=== PATIENT | female | born 1965 | race Caucasian/White ===

== ENCOUNTER 2023-11-22 09:30 | Outpatient (AMB) | payer OTHER, MEDICAID, SELFPAY ==
--- NOTE | 2023-11-22 09:58 | MHC.OFFVISWM ---
Intake VS Expanded 11/22/23 10:07 BP 152/66 H Blood Pressure Location Rt brachial Blood Pressure Position Sitting Pulse 73 Pulse Source Pulse Oximeter Temp 97.9 F Temperature Source Temporal Artery Scan Pulse Oximetry 99 Oxygen Delivery Method Room Air Height 5 ft 2 in Weight 137 lb 3.2 oz BMI 25.1 Body Fat % 30.7 Body Fat Mass 42.2 Fat Free Mass 95.0 Visceral Fat Rating 7.0 Body Water % 49.0 Body Water Mass 67.2 Muscle Mass/Score 90.2 Basal Metabolic Rate/Score 1,280 Intake Visit Reasons: (OV) PO GBP 03/07/18 Allergies No Known Allergies [No Known Allergies*] Allergy (Verified 11/22/23 10:04) Medication List - Last Reconciled 11/22/23 by HEATHER Roca ondansetron HCl 10 mg PO Q8H HPI HPI Comments History of Present Illness Details This?is a?58?yo female who is s/p RYGB 03/07/2018. Weight stable since last visit in 2019.? No complaints of nausea, emesis, abdominal pain or reflux, or constipation. Had labs done at outside facility. Has results on portal. No longer taking baby ASA. Present meal plan includes: breakfast- 2 coffees, toast lunch- small snack dinner- mini bagel with ham and cheese has some snacks at night, eats a lot of fruit and veg Exercise routine includes: walking Did the patient ever have any of these conditions and are they resolved or still being treated? GERD: resolved PEDRO:? never DM:? resolved HTN:? resolved Hyperlipidemia:? resolved Post op complications:? none Pt reports problems of excess skin of abdomen. This has been going on for several years. She is experiencing rashes which she has tried to use baby power for, which has not resolved the problem. These rashes are itchy and painful. Walking is more difficult due to the heaviness of the excess skin getting in the way during movement. She also is experiencing issues of skin of upper thighs. Has been having chafing/rashes due to friction, finds shaving her legs difficult due to irritation. Walking also difficult due to discomfort. PFSH Surgical History (Updated 11/22/23 @ 10:25 by HEATHER Roca) Hx of carpal tunnel repair S/P gastric sleeve procedure Social History (Updated 11/22/23 @ 10:06 by Socorro Fung CMA) Alcohol intake: current Alcohol intake frequency: holidays/special occasions only Patient Tobacco Use Status: Never used Tobacco Physical Exam Vital Signs: Last Vital Signs Temp 97.9 F 11/22/23 10:07 Pulse 73 11/22/23 10:07 BP 152/66 H 11/22/23 10:07 Pulse Ox 99 11/22/23 10:07 Oxygen Delivery Method Room Air 11/22/23 10:07 BMI result Body Mass Index 25.1 Assessment & Plan Assessment & Plan (1) Overweight: Code(s): E66.3 - Overweight (2) Hx of gastric bypass: Code(s): Z98.84 - Bariatric surgery status (3) Excess skin: Code(s): L98.7 - Excessive and redundant skin and subcutaneous tissue Plan Pt to increase daily protein intake with goal 60g/day. Add in one protein shake (has used Pure products in the past), make sure to have protein at dinnertime. Clotrimazole ointment ordered for rashes of excess skin. Labs previously drawn at outside facility, pt will have results sent to us. Will bring updated med list at next visit. RTC 6 weeks to monitor excess skin issues. Patient is overweight with issues of excess skin and is not considered stable at this time. I spent a total of 30 minutes reviewing/updating records, examining the patient and counseling the patient on weight management as detailed above. Medications: New clotrimazole 1% 1 appl topical BID 45 grams 3RF Coding Level of Care Code Est Pt Level 4 (93592) Diagnoses Overweight E66.3 Hx of gastric bypass Z98.84 Excess skin L98.7
[2023-11-22 10:07] VITALS: BP 152/66; PULSE 73; TEMP 36.6; O2SAT 99; BMI 25.1
== END 2023-11-22 10:58 | disposition home or self-care (01) ==
PROVIDERS: PCP Nurse Practitioner Family; Visit Provider Physician Assistant Surgical
DX: E66.3 Overweight (principal); Z68.25 Body mass index [BMI] 25.0-25.9, adult; Z98.84 Bariatric surgery status; L98.7 Excessive and redundant skin and subcutaneous tissue
CPT/HCPCS: 99214

== ENCOUNTER → 2023-11-22 09:30 | Outpatient (BNVA) | payer OTHER, MEDICAID, SELFPAY | PROVIDERS: PCP Nurse Practitioner Family; Visit Provider Physician Assistant Surgical ==

== ENCOUNTER 2024-01-21 10:42 | Outpatient (AMB) | payer OTHER, MEDICAID, SELFPAY ==
--- NOTE | 2024-01-21 10:37 | A.OFFVIS_ITS ---
VS Expanded 01/21/24 10:52 Height 5 ft 2 in Weight 137 lb BMI 25.1 Intake Visit Reasons: (phone) PO GBP 03/07/18 Allergies No Known Allergies [No Known Allergies*] Allergy (Verified 11/22/23 10:04) Medication List - Last Reconciled 01/21/24 by HEATHER Roca aspirin 81 mg PO DAILY cholecalciferol (vitamin D3) 50 mcg PO DAILY clotrimazole 1% 1 appl topical BID ondansetron HCl 10 mg PO Q8H HPI Comments Details: This?is a?58?yo female who is s/p RYGB 03/07/2018. Weight stable since last visit 1 month ago.? No complaints of nausea, emesis, abdominal pain or reflux, or constipation. Pt reports being on a BP and HLD med, unsure of name. Present meal plan includes: breakfast- 2 coffees, eggs lunch- small snack dinner- has started to increase her protein at evening meals goal 60g/day protein has some snacks at night, eats a lot of fruit and veg Exercise routine includes: walking Pt reports ongoing problems of excess skin of abdomen. This has been going on fo r several years. She is experiencing rashes which she has tried the clotrimazole ointment, but this has not resolved the problem. These rashes are itchy and painful. Pt notices unpleasant odor in skin fold, has to clean frequently and shower often. Has to wear special waistbands with pants to hold skin in place to prevent discomfort. Walking is more difficult due to the heaviness of the excess skin getting in the way during movement. She also is experiencing issues of skin of upper thighs. Has been having chafing/rashes due to friction, finds shaving her legs difficult due to irritation. Topical rx has not improved this either. Walking also difficult due to discomfort. [facility] Surgical History (Updated 11/22/23 @ 10:25 by HEATHER Roca) Hx of carpal tunnel repair S/P gastric sleeve procedure Social History (Updated 11/22/23 @ 10:06 by Socorro Fung CMA) Alcohol intake: current Alcohol intake frequency: holidays/special occasions only Patient Tobacco Use Status: Never used Tobacco Telehealth Telehealth Telehealth Platform: Telephone Location of provider rendering services: other Location of patient: address on file Patient Identification confirmed using: Name, : Yes Telehealth method: voice only Patient verbally consented to treatment: Yes Patient verbally consented to billing insurance company: Yes Patient informed of any privacy concerns related to visit: Yes Minutes spent on Phone/Video with Pt.: 15 Assessment & Plan Assessment & Plan (1) Hx of gastric bypass: Code(s): Z98.84 - Bariatric surgery status Category: Surgical (2) Overweight: Code(s): E66.3 - Overweight Category: Medical (3) Excess skin: Code(s): L98.7 - Excessive and redundant skin and subcutaneous tissue Category: Medical Plan Pt has increased her protein intake closer to goal. We discussed the importance of this in ensuring adequate nutrition prior to a potential operation. She is having problems of excess skin of abdomen, causing frequent painful, malodorous, itchy rashes refractory to topical rx treatment. In addition, the excess skin is causing her pain and discomfort with activites of daily living such as walking, and requires special clothing to minimize discomfort. She would benefit from definitive treatment of panniculectomy. Pt to come into office for physical exam, photos, and updated med list. Will then submit to insurance. Patient is overweight and with ongoing issues of excess skin of abdomen, and is not considered stable at this time. I spent a total of 30 minutes reviewing/updating records, examining the patient and counseling the patient on weight management as detailed above.
[2024-01-21 10:52] VITALS: BMI 25.1
== END 2024-01-21 10:55 | disposition home or self-care (01) ==
LOC: HO.HBS 10:42
PROVIDERS: PCP Nurse Practitioner Family; Visit Provider Physician Assistant Surgical
DX: L98.7 Excessive and redundant skin and subcutaneous tissue (principal); E66.3 Overweight; Z68.25 Body mass index [BMI] 25.0-25.9, adult; Z98.84 Bariatric surgery status
CPT/HCPCS: 99214

== ENCOUNTER → 2024-01-21 10:42 | Outpatient (BNVA) | payer OTHER, MEDICAID, SELFPAY | PROVIDERS: PCP Nurse Practitioner Family; Visit Provider Physician Assistant Surgical ==